=== PATIENT | female | born 2000 | race Caucasian/White ===

== ENCOUNTER 2022-05-10 14:00 | Emergency (ER) | payer BC ==
[~2022-05-10] VITALS: Ht 172.7 cm; Wt 49.9 kg
--- NOTE | 2022-05-10 14:42 | NUR ---
back pain with urinary frequency x 4 days
--- NOTE | 2022-05-10 14:42 | NUR ---
urine - sent to labs
[2022-05-10 15:10] LABS: BILIRUBIN,URINE NEGATIVE (NEGATIVE); COLOR,URINE YELLOW (YELLOW); LEUKOCYTE ESTERASE ,URINE SMALL (NEGATIVE); NITRITE, URINE NEGATIVE (NEGATIVE); PROTEIN,URINE 30 mg/dl (NEGATIVE); UGLUCOSE NEGATIVE (NEGATIVE); UROBILINOGEN,URINE 0.2 EU/dL (0.2)
[2022-05-10 15:17] LABS: BACTERIA,URINE Few /HPF (None Seen); SQUAMOUS EPITHELIAL CELL,UR Few /HPF (None Seen)
[2022-05-10] MEDS ORDERED: CEPHALEXIN MONOHYDRATE 500 MG CAPSULE PO ONE (16:00)
[2022-05-10] MEDS ORDERED: KETOROLAC TROMETHAMINE 15 MG/ML VIAL ONE (16:00)
[2022-05-10] MEDS: KETOROLAC TROMETHAMINE INJ 30 MG/ML VIAL IM ONE (16:05)
[2022-05-10] MEDS: CEPHALEXIN MONOHYDRATE 500 MG CAPSULE PO ONE (16:07)
[2022-05-10] MEDS ORDERED: CYCL5TAB PO (16:11)
[2022-05-10] MEDS ORDERED: IBUP-1955 PO (16:11)
[2022-05-10] MEDS ORDERED: CEPH500C2 PO (16:11)
[2022-05-10 16:18] VITALS: BP 98/52
--- NOTE | 2022-05-10 16:18 | NUR ---
Patient discharged to home in stable condition. Written and verbal after care instructions given. Patient verbalizes understanding of instruction.
== END 2022-05-10 16:19 | disposition home or self-care (01) ==
LOC: ER 14:02
DX: N39.0 Urinary tract infection, site not specified (principal); M54.50 Low back pain, unspecified; Z79.899 Other long term (current) drug therapy
CPT/HCPCS: 99283; 96372; 87086; 84703; 81001; J1885